=== PATIENT | male | born 1960 ===

== ENCOUNTER → 2023-01-22 15:21 | Outpatient (CLI) | payer OTHER, SELFPAY ==
--- NOTE | ~2023-01-22 | MR_ITS ---
MRI of the right shoulder Technique: Axial proton-density fat-sat images, coronal proton density fat-sat and T2 fat-sat images, and sagittal T1-weighted and T2 fat-sat images were acquired. Clinical History: Pain Findings: There is severe AC joint degenerative change, with bifurcated change at the distal clavicle and acromion. Coracoclavicular, coracoacromial, and coracohumeral ligaments appear intact. There are complete, full-thickness tears involving the entirety of the supraspinatus and infraspinatu s tendons. Fluid-filled gap measures approximately 4.0 x 4.0 cm in extent. Subscapularis tendon is in tact, with moderate tendinosis. Tendon of long head of the biceps is intact. No definite labral tear identified. Inferior glenohumeral ligament is intact. There is small glenohumeral joint effusion, with fluid pass ing through the rotator cuff defect into the subacromial/subdeltoid bursa. There is edematous change of the infraspinatus muscle belly without distinct fatty atrophy. There is high-grade chondromalacia along the inferomedial aspect of the humeral head. Impression: Complete, full-thickness tears involving the entirety of the supraspinatus and infraspinatus tendons, as detailed above. Extensive amorphous edematous change of the infraspinatus muscle belly. Severe AC joint degenerative change. High-grade chondromalacia at the inferomedial aspect of the humeral head. Reviewed, dictated and finalized at [facility]. Impression: Complete, full-thickness tears involving the entirety of the supraspinatus and infraspinatus tendons, as detailed above. Extensive amorphous edematous change of the infraspinatus muscle belly. Severe AC joint degenerative change. High-grade chondromalacia at the inferomedial aspect of the humeral head.
== END ==
PROVIDERS: PCP Family Medicine; Visit Provider Orthopaedic Surgery
DX: M25.511 Pain in right shoulder (principal); G89.29 Other chronic pain; M75.101 Unspecified rotator cuff tear or rupture of right shoulder, not specified as traumatic
CPT/HCPCS: 73221